=== PATIENT | male | born 1975 | race African-American/Black ===

== ENCOUNTER 2018-02-01 09:34 | Inpatient (IN) | payer MEDICAID ==
[2018-02-01] VITALS (11 sets, daily range): BP systolic 165–200; BP diastolic 101–151
[~2018-02-01] VITALS: Ht 195.6 cm; Wt 111.6 kg
[2018-02-01] MEDS ORDERED: ASPIRIN 81MG TABLET PO ONE (10:30)
[2018-02-01] MEDS ORDERED: ENALAPRIL 1.25MG/ML VIAL 1ML IV ONE (10:30)
[2018-02-01 11:11] LABS: BASOPHILS % 0.6 % (0.0-2.0); EOSINOPHILS % 7.1 % (0.0-5.0); HEMATOCRIT. 42.1 % (42.0-52.0); HEMOGLOBIN. 14.2 g/dL (14.0-18.0); LYMPHOCYTES % 27.9 % (20.0-50.0); MEAN CORPUSCULAR HEMOGLOBIN 30.9 pg (28.0-32.0); MEAN CORPUSCULAR VOLUME 91.4 fL (80.0-94.0); MEAN PLATELET VOLUME 8.3 fl (7.4-10.4); NEUTROPHILS % 60.4 % (40.0-76.0); PLATELET 341 x1000/uL (130-400); RED CELL DISTRIBUTION WIDTH 14.7 % (11.6-14.6)
[2018-02-01 11:18] LABS: CHLORIDE 103 mEq/L (98-107)
[2018-02-01 11:21] LABS: INR 1.1; PARTIAL THROMBOPLASTIN TIME 26.4 sec (23.4-31.0); PROTHROMBIN TIME 11.3 sec (9.1-11.1)
[2018-02-01] MEDS ORDERED: ENALAPRIL 2.5MG/2ML VIAL 2ML IV SCH (11:38)
[2018-02-01] MEDS ORDERED: ACETAMINOPHEN 325MG TABLET PO PRN (11:45)
[2018-02-01] MEDS ORDERED: DOCUSATE SODIUM 100MG CAPSULE PO PRN (11:45)
[2018-02-01] MEDS ORDERED: IPRATROPIUM/ALBUTEROL 0.5-3(2.5)MG/3ML NEB INH PRN (11:45)
[2018-02-01] MEDS ORDERED: MORPHINE SULFATE 10 MG/ML CPJ IV PRN (11:45)
[2018-02-01] MEDS ORDERED: GUAIFENESIN 200MG/10ML SUGAR FREE UDC PO PRN (11:45)
[2018-02-01] MEDS ORDERED: LORAZEPAM 2MG/ML CPJ IV PRN (11:45)
[2018-02-01] MEDS ORDERED: FUROSEMIDE 20MG/2ML VIAL IVP ONE (11:45)
[2018-02-01] MEDS ORDERED: NA PHOS,M-B/NA PHOS,DI-BA ENEMA 118ML PR PRN (11:45)
[2018-02-01] MEDS ORDERED: ONDANSETRON HCL 4MG/2ML INJ IV PRN (11:45)
[2018-02-01] MEDS ORDERED: DIPHENHYDRAMINE 50MG/ML VIAL IV PRN (11:45)
[2018-02-01] MEDS ORDERED: MAGNESIUM/ALUMINUM HYDROXIDE/SIMETHICONE 30ML UDC PO PRN (11:45)
[2018-02-01] MEDS ORDERED: HYDRALAZINE 20MG/ML VIAL IV ONE (12:30)
[2018-02-01 13:10] LABS: CLARITY URINE CLEAR (CLEAR); COLOR URINE YELLOW (YELLOW); KETONES URINE NEGATIVE (NEGATIVE); LEUKOCYTE ESTERASE URINE NEGATIVE (NEGATIVE); NITRITE URINE NEGATIVE (NEGATIVE); OCCULT BLOOD URINE NEGATIVE (NEGATIVE); PH URINE 6.5 (4.5-8.0); PROTEIN URINE 1+ (NEGATIVE); SPECIFIC GRAVITY URINE 1.009 (1.005-1.030); UROBILINOGEN URINE 0.2 E.U./dL (0.2-1.0)
[2018-02-01 13:39] LABS: *AMPHETAMINES SCREEN URINE NEGATIVE (NEGATIVE); *BARBITURATES SCREEN URINE NEGATIVE (NEGATIVE)
[2018-02-01 13:40] LABS: *BENZODIAZEPINES SCREEN URINE NEGATIVE (NEGATIVE); *COCAINE SCREEN URINE NEGATIVE (NEGATIVE); CANNABINOID URINE SCREEN PRESUMTIVE POSITIVE (NEGATIVE); METHADONE URINE SCREEN NEGATIVE (NEGATIVE); OPIATES URINE SCREEN NEGATIVE (NEGATIVE); PHENCYCLIDINE URINE SCREEN NEGATIVE (NEGATIVE)
[2018-02-01] MEDS ORDERED: LORAZEPAM 2MG/ML CPJ IV ONE (13:45)
[2018-02-01] MEDS ORDERED: LABETALOL 5MG/ML SYR 20 MG/4 ML SYRINGE IV ONE ×2 (13:45→15:00)
[2018-02-01] MEDS ORDERED: LABETALOL HCL 20MG/4ML CARPUJECT IV NR (14:00)
[2018-02-01] MEDS ORDERED: NITROGLYCERIN 50MG PREMIX 250 ML IV ONE (16:15)
[2018-02-01] MEDS ORDERED: LOSARTAN POTASSIUM 25 MG TABLET PO SCH (22:00)
[2018-02-01] MEDS ORDERED: CARVEDILOL 3.125 MG TABLET PO SCH (22:00)
[2018-02-01 22:03] LABS: CHLORIDE 104 mEq/L (98-107)
[2018-02-01] MEDS: FUROSEMIDE 40MG/4ML VIAL IVP SCH (22:19)
[2018-02-01] MEDS: CLONIDINE 0.1MG TABLET PO PRN (22:19)
[2018-02-01] MEDS: ENOXAPARIN 30MG/0.3ML SYR SUBCUT SCH ×2 (22:20→22:28)
[2018-02-02] VITALS (75 sets, daily range): BP systolic 116–173; BP diastolic 60–124
[2018-02-02] MEDS: NITROGLYCERIN 50MG PREMIX 250 ML IV PRN ×4 (00:26→12:43)
[2018-02-02 06:14] LABS: BASOPHILS % 0.3 % (0.0-2.0); EOSINOPHILS % 2.6 % (0.0-5.0); HEMATOCRIT. 38.7 % (42.0-52.0); HEMOGLOBIN. 13.1 g/dL (14.0-18.0); LYMPHOCYTES % 19.9 % (20.0-50.0); MEAN CORPUSCULAR VOLUME 91.3 fL (80.0-94.0); MEAN PLATELET VOLUME 8.6 fl (7.4-10.4); MONOCYTES % 4.7 % (2.0-8.0); NEUTROPHILS % 72.5 % (40.0-76.0); PLATELET 314 x1000/uL (130-400); RED BLOOD CELL COUNT 4.23 mill/uL (4.7-6.1); RED CELL DISTRIBUTION WIDTH 14.3 % (11.6-14.6)
[2018-02-02] MEDS: CLONIDINE 0.1MG TABLET PO PRN ×2 (06:37→12:43)
[2018-02-02 06:42] LABS: CHLORIDE 102 mEq/L (98-107)
[2018-02-02 06:52] LABS: LDL CHOLESTEROL 56 mg/dL (5-100)
[2018-02-02 06:54] LABS: HDL CHOLESTEROL 24 mg/dL (40-59)
[2018-02-02 06:55] LABS: T4 FREE 1.69 ng/dL (0.76-1.46)
[2018-02-02] MEDS ORDERED: POTASSIUM CHLORIDE 20MEQ TABLET SR PO SCH ×2 (08:00→09:00)
[2018-02-02] MEDS: FUROSEMIDE 40MG/4ML VIAL IVP SCH ×2 (08:25→16:54)
[2018-02-02] MEDS: CARVEDILOL 6.25 MG TABLET PO SCH ×2 (08:26→21:20)
[2018-02-02] MEDS: ASPIRIN 81MG EC TABLET PO SCH (08:26)
[2018-02-02] MEDS: LOSARTAN POTASSIUM 50 MG TABLET PO SCH ×2 (08:26→21:19)
[2018-02-02] MEDS ORDERED: POTASSIUM CHLORIDE 20MEQ TABLET SR PO ONE (09:00)
[2018-02-02] MEDS: NIFEDIPINE XL 60MG TAB PO SCH (11:12)
[2018-02-02] MEDS: ISOSORB DINIT/HYDRALAZINE HCL 20/37.5MG TABLET PO SCH ×2 (13:05→21:20)
[2018-02-02] MEDS ORDERED: SODIUM BICARBONATE 4% (2.4MEQ) 5ML VIAL IV ONE (14:08)
[2018-02-02] MEDS ORDERED: LIDOCAINE HCL 1% 20ML VIAL (Pyxis) INJ ONE (14:08)
[2018-02-02] MEDS ORDERED: ENOXAPARIN 40MG/0.4ML SYR SUBCUT SCH (22:00)
[2018-02-03] VITALS (39 sets, daily range): BP systolic 124–179; BP diastolic 75–115
[2018-02-03] MEDS: CLONIDINE 0.1MG TABLET PO PRN ×2 (00:34→06:30)
[2018-02-03] MEDS: HYDROCODONE/ACETAMINOPHEN 5/325MG TABLET PO PRN ×3 (04:36→15:43)
[2018-02-03] MEDS: ISOSORB DINIT/HYDRALAZINE HCL 20/37.5MG TABLET PO SCH ×2 (06:29→13:38)
[2018-02-03 06:34] LABS: BASOPHILS % 0.3 % (0.0-2.0); EOSINOPHILS % 1.6 % (0.0-5.0); HEMATOCRIT. 39.9 % (42.0-52.0); HEMOGLOBIN. 13.7 g/dL (14.0-18.0); LYMPHOCYTES % 13.4 % (20.0-50.0); MEAN CORPUSCULAR HEMOGLOBIN 31.4 pg (28.0-32.0); MEAN CORPUSCULAR VOLUME 91.5 fL (80.0-94.0); MEAN PLATELET VOLUME 8.6 fl (7.4-10.4); MONOCYTES % 5.8 % (2.0-8.0); NEUTROPHILS % 78.9 % (40.0-76.0); PLATELET 330 x1000/uL (130-400); RED BLOOD CELL COUNT 4.36 mill/uL (4.7-6.1); RED CELL DISTRIBUTION WIDTH 14.5 % (11.6-14.6)
[2018-02-03] MEDS ORDERED: IOHEXOL-300 100 ML BOTTLE ONE (06:44)
[2018-02-03 06:47] LABS: CHLORIDE 102 mEq/L (98-107)
[2018-02-03] MEDS: CARVEDILOL 6.25 MG TABLET PO SCH (08:33)
[2018-02-03] MEDS: ASPIRIN 81MG EC TABLET PO SCH (08:33)
[2018-02-03] MEDS: LOSARTAN POTASSIUM 50 MG TABLET PO SCH (08:33)
[2018-02-03] MEDS: NIFEDIPINE XL 60MG TAB PO SCH (08:33)
[2018-02-03] MEDS: FUROSEMIDE 40MG/4ML VIAL IVP SCH (08:34)
== END 2018-02-03 16:20 | disposition home or self-care (01) | DRG 194 ==
LOC: ER 10:57 → EDBEDREQ 11:28 → EDBEDREQTM 11:28 → CANRESERV 11:30 → ENRESERV 11:30 → CVICU 16:11 → EDBEDREQTM 16:15 → EDBEDREQ 16:15 → EDBEDREQSVC 16:15
PROVIDERS: ADMIT Internal Medicine; ATTEND Internal Medicine
DX: I11.0 Hypertensive heart disease with heart failure (principal); E80.6 Other disorders of bilirubin metabolism; I50.43 Acute on chronic combined systolic (congestive) and diastolic (congestive) heart failure; F12.90 Cannabis use, unspecified, uncomplicated; R10.13 Epigastric pain; R73.9 Hyperglycemia, unspecified; J45.909 Unspecified asthma, uncomplicated; Z91.19 Patient's noncompliance with other medical treatment and regimen; Z82.49 Family history of ischemic heart disease and other diseases of the circulatory system
CPT/HCPCS: 36415; 71045; 80048; 80061; 80305; 83036; 83735; 83880; 84439; 84443; 84484; 93005; 93306; 96374; 96375; 99291; J0360; J1650; J1940; J2060; J2405; J3490; Q9967